=== PATIENT | female | born 1960 | race Caucasian/White ===

== ENCOUNTER 2019-07-16 20:03 | Emergency (ER) | payer MEDICAID ==
[~2019-07-16] VITALS: Ht 167.6 cm; Wt 62.0 kg
[2019-07-17 00:35] LABS: BASOPHILS % 1.3 % (0.0-2.0); EOSINOPHILS % 4.3 % (0.0-5.0); HEMATOCRIT. 39.9 % (36.0-48.0); HEMOGLOBIN. 13.3 g/dL (12.0-16.0); LYMPHOCYTES % 38.9 % (20.0-50.0); MEAN CORPUSCULAR HEMOGLOBIN 30.9 pg (28.0-32.0); MEAN CORPUSCULAR VOLUME 92.6 fL (81.0-99.0); MEAN PLATELET VOLUME 7.7 fl (7.4-10.4); MONOCYTES % 7.4 % (2.0-8.0); NEUTROPHILS % 48.1 % (40.0-76.0); PLATELET 218 x1000/uL (130-400); RED BLOOD CELL COUNT 4.31 mill/uL (4.2-5.4); RED CELL DISTRIBUTION WIDTH 13.7 % (11.6-14.6)
[2019-07-17 00:40] LABS: CHLORIDE 109 mEq/L (98-107)
[2019-07-17] MEDS ORDERED: IOHEXOL-350 100 ML BOTTLE ONE (04:04)
[2019-07-17] MEDS ORDERED: MAGNESIUM/ALUMINUM HYDROXIDE/SIMETHICONE 30ML UDC PO ONE (13:30)
[2019-07-17] MEDS ORDERED: ONDANSETRON 4MG ODT PO ONE ×2 (13:30→14:15)
[2019-07-17] MEDS ORDERED: ACETAMINOPHEN 325MG TABLET PO ONE (14:15)
[2019-07-17 14:43] LABS: PROTHROMBIN TIME 10.7 sec (9.6-11.0)
[2019-07-17 18:18] VITALS: BP 135/85
== END 2019-07-17 21:01 | disposition home or self-care (01) ==
LOC: ER 20:03
DX: I82.442 Acute embolism and thrombosis of left tibial vein (principal); Z88.2 Allergy status to sulfonamides; Z86.711 Personal history of pulmonary embolism; Z86.718 Personal history of other venous thrombosis and embolism; Z87.891 Personal history of nicotine dependence; Z96.649 Presence of unspecified artificial hip joint
CPT/HCPCS: 36415; 71045; 71250; 78580; 80053; 83880; 84484; 85025; 85610; 93005; 93970; 99284; A9540; Q0162; Q9967